=== PATIENT | female | born 2000 | race Two or more races ===

== ENCOUNTER 2019-07-09 09:23 | Inpatient (IN) | payer MEDICAID ==
[2019-07-09] MEDS ORDERED: Celecoxib 200 MG Cap PO ONE (09:45)
[2019-07-09] MEDS ORDERED: Gabapentin 300 MG Cap PO ONE (09:45)
[2019-07-09] MEDS ORDERED: Scopolamine 1.5 MG Transdermal Patch TOP SCH (09:45)
[2019-07-09] MEDS ORDERED: Acetaminophen 500 MG Tab PO ONE (09:45)
[2019-07-09] MEDS ORDERED: Lactated Ringers 1,000 ML ONE (09:50)
[2019-07-09] MEDS ORDERED: fentaNYL 250 MCG/5 ML SDV ONE ×2 (09:50→11:50)
[2019-07-09] MEDS ORDERED: Succinylcholine 200 MG/10 ML MDV ONE (09:52)
[2019-07-09] MEDS ORDERED: Ondansetron 4 MG/2 ML SDV ONE (09:52)
[2019-07-09] MEDS ORDERED: Rocuronium 50 MG/5 ML Vial ONE (09:52)
[2019-07-09] MEDS ORDERED: Neostigmine Methylsulfate 1 MG/ML 5 ML Syringe ONE (09:52)
[2019-07-09] MEDS ORDERED: Glycopyrrolate 0.2 MG/ML 5 ML MDV ONE (09:52)
[2019-07-09] MEDS ORDERED: Propofol 200 MG/20 ML SDV ONE (09:52)
[2019-07-09] MEDS ORDERED: Dexamethasone 4 MG/ML SDV ONE (09:52)
[2019-07-09] MEDS ORDERED: Dextrose 5%-Lactated Ringers 1,000 ML IV SCH (10:00)
[2019-07-09] MEDS ORDERED: Levofloxacin/Dextrose 5%-Water 500 MG in Premix Bag 1 BAG IV ONE (11:15)
[2019-07-09] MEDS ORDERED: Ketamine 50 MG in Sodium Chloride 0.9% 49.5 ML IV SCH (11:30)
[2019-07-09] MEDS ORDERED: Ketamine 500 MG/5 ML MDV IV SCH (11:30)
[2019-07-09] MEDS ORDERED: Magnesium Sulfate 7 GM in Sodium Chloride 0.9% 250 ML IV ONE (11:30)
[2019-07-09] MEDS: Levofloxacin 500 MG/20 ML SDV ONE ×2 (12:22→13:02)
[2019-07-09] MEDS ORDERED: Labetalol 20 MG/4 ML Syringe ONE (12:45)
[2019-07-09] MEDS ORDERED: hydrOXYzine HCL 100 MG/2 ML SDV IM ONE (13:46)
[2019-07-09] MEDS ORDERED: Acetaminophen 500 MG Tab PO PRN (14:43)
[2019-07-09] MEDS ORDERED: Cyclobenzaprine 10 MG Tab PO PRN (14:43)
[2019-07-09] MEDS ORDERED: Calcium Gluconate 10% 1 GM/10 ML SDV IVPUSH PRN (14:43)
[2019-07-09] MEDS ORDERED: oxyCODONE 5 MG Tab PO PRN (14:43)
[2019-07-09] MEDS ORDERED: Ondansetron 4 MG/2 ML SDV IVPUSH PRN (14:43)
[2019-07-09] MEDS ORDERED: Labetalol 20 MG/4 ML Syringe IVPUSH PRN (14:43)
[2019-07-09] MEDS ORDERED: HYDROmorphone 1 MG/ML Syringe IV PRN (14:43)
[2019-07-09] MEDS ORDERED: hydrOXYzine HCL 100 MG/2 ML SDV IM PRN (14:43)
[2019-07-09] MEDS ORDERED: Metoclopramide 10 MG/2 ML SDV IVPUSH PRN (14:43)
[2019-07-09] MEDS ORDERED: diphenhydrAMINE 50 MG/ML SDV IVPUSH PRN (14:43)
[2019-07-09] MEDS: HYDROmorphone 0.5 MG/0.5 ML Syringe IVPUSH PRN (15:06)
[2019-07-09] MEDS ORDERED: Pantoprazole 40 MG Vial IVPUSH SCH (16:00)
[2019-07-09] MEDS ORDERED: MVI, Adult with Vitamin K 10 ML, Thiamine 200 MG, Chromium/Copper/Mang/Selen/Zn 1 ML in... IV SCH ×4 (16:00)
[2019-07-09] MEDS: Acetaminophen 500 MG Tab PO SCH ×2 (16:06→17:03)
[2019-07-09] MEDS: Heparin Sodium 5,000 Units/ML Vial SUBCUT SCH (18:11)
[2019-07-09] MEDS: Gabapentin 250 MG/5 ML Solution ML 470 ML Bottle PO SCH (20:42)
[2019-07-10] MEDS: Acetaminophen 500 MG Tab PO SCH ×4 (00:10→23:30)
[2019-07-10] MEDS: Dextrose 5%-Lactated Ringers 1,000 ML IV SCH ×2 (00:10→05:56)
[2019-07-10] MEDS: HYDROmorphone 0.5 MG/0.5 ML Syringe IVPUSH PRN ×4 (01:06→20:20)
[2019-07-10] MEDS ORDERED: Iopamidol 612 MG/ML 50 ML SDV PO STA (01:21)
[2019-07-10] MEDS: Heparin Sodium 5,000 Units/ML Vial SUBCUT SCH ×2 (05:55→17:47)
[2019-07-10] MEDS ORDERED: Ondansetron 4 MG Tab.DIS PO PRN (07:35)
[2019-07-10] MEDS ORDERED: Amphetamine/Dextroamphetamine Salts 10 MG Tab PO PRN (07:36)
[2019-07-10] MEDS ORDERED: Dextrose 5%-Lactated Ringers 1,000 ML IV SCH (07:45)
[2019-07-10] MEDS: Levothyroxine 100 MCG Tab PO SCH (08:09)
[2019-07-10] MEDS ORDERED: hydrOXYzine HCl 25 MG Tab PO PRN (08:17)
[2019-07-10] MEDS ORDERED: Non-Formulary Medication 1 Each (Amphetamine/Dextroamphetamine [Adderall Xr] 30 MG) PO SCH (09:00)
[2019-07-10] MEDS: Amphetamine/Dextroamphetamine Salts 10 MG Cap.ER PO SCH (09:14)
[2019-07-10] MEDS: Gabapentin 250 MG/5 ML Solution ML 470 ML Bottle PO SCH ×3 (09:18→20:53)
--- NOTE | 2019-07-10 09:31 | PN ---
DATE OF SERVICE: 07/10/2019 SUBJECTIVE: Chantel is postoperative day #1 following a Glenn-en-Y gastric bypass surgery. She has been very sleepy. Oral intake was 100 and urine output 850. Temperature max of 100. Pain has been controlled. REVIEW OF SYSTEMS: Remainder of review of systems negative for any pertinent positives and negatives. OBJECTIVE: GENERAL: Chantel Tejada is a 18-year-old female. She is quite sleepy. TPR at 07:26, 99.1; 65; 16; blood pressure 149/60. HEENT: Negative. NECK: Supple. HEART: Regular rate and rhythm. LUNGS: Clear. ABDOMEN: Dressings dry and intact. FLETCHER drain is intact and draining a light red drainage of 140 mL. EXTREMITIES: SCDs are on and there is no peripheral edema. ASSESSMENT: Laparoscopic Glenn-en-Y gastric bypass surgery, liver biopsy, repair of diaphragmatic hernia, excision of mediastinal lipoma and partial gastrectomy for morbid obesity, hepatomegaly, diaphragmatic hernia, mediastinal lipoma. Date of surgery: 07/09/2019. Surgeon: Chan Hinojosa MD. PLAN: 1. Decrease IV to 100 mL per hour. 2. Dressing off, may shower. 3. Step 2 gastric bypass diet with no cereal. Upper GI was normal. 4. Zofran ODT 4 mg q.4 hours p.r.n. nausea. 5. Home medications restarted; Adderall XR 30 mg daily, Adderall XR 30 mg p.o. bedtime or 2nd dose later in the day, p.r.n. if needed. Synthroid 100 mcg p.o. before breakfast. 6. Good pulmonary toilet. 7. Encourage ambulation. 8. Communication order written for 3 med cups, 1 every 20 minutes and record at bedside. 9. We will evaluate p.r.n. or in a.m. Anel Ventura PA-C /[id number]
[2019-07-10] MEDS: Celecoxib 200 MG Cap PO SCH ×2 (09:47→20:15)
[2019-07-10] MEDS: SCOPOLAMINE PATCH CHECK TOP SCH (09:48)
[2019-07-10] MEDS: Levofloxacin/Dextrose 5%-Water 500 MG in Premix Bag 1 BAG IV SCH (11:09)
[2019-07-10] MEDS ORDERED: Pantoprazole 40 MG Delayed-Release Granules 1 Packet PO SCH (16:00)
[2019-07-10] MEDS ORDERED: MVI, Adult with Vitamin K 10 ML, Thiamine 200 MG, Chromium/Copper/Mang/Selen/Zn 1 ML in... IV SCH ×4 (16:00)
[2019-07-11] MEDS: Heparin Sodium 5,000 Units/ML Vial SUBCUT SCH (06:09)
[2019-07-11] MEDS ORDERED: Levothyroxine 100 MCG Tab PO SCH (07:30)
[2019-07-11] MEDS ORDERED: Magnesium Hydroxide 400 MG/5 ML Susp 30 ML Cup PO PRN (07:33)
[2019-07-11] MEDS: Levothyroxine 100 MCG Tab PO SCH (07:44)
[2019-07-11] MEDS: Acetaminophen 500 MG Tab PO SCH (07:45)
[2019-07-11] MEDS: Celecoxib 200 MG Cap PO SCH (08:33)
[2019-07-11] MEDS: Amphetamine/Dextroamphetamine Salts 10 MG Cap.ER PO SCH (08:33)
[2019-07-11] MEDS: SCOPOLAMINE PATCH CHECK TOP SCH (08:35)
[2019-07-11] MEDS: Gabapentin 250 MG/5 ML Solution ML 470 ML Bottle PO SCH (08:44)
[2019-07-11] MEDS ORDERED: Cyanocobalamin (Vitamin B12) 1,000 MCG/ML SDV IM ONE (09:00)
[2019-07-11] MEDS: Levofloxacin/Dextrose 5%-Water 500 MG in Premix Bag 1 BAG IV SCH (11:00)
--- NOTE | 2019-07-12 09:08 | DISCH ---
ADMISSION DIAGNOSES: Morbid obesity, BMI 51; hypothyroidism; attention deficit hyperactivity disorder; prediabetes; and history of migraine headaches. DISCHARGE DIAGNOSES: Laparoscopic Glenn-en-Y gastric bypass surgery, liver biopsy, repair of diaphragmatic hernia, excision of mediastinal lipoma, and partial gastrectomy. POSTOPERATIVE DIAGNOSES: 1. Morbid obesity, hepatomegaly, diaphragmatic hernia, and mediastinal lipoma. 2. Date of surgery: 07/09/2019. Surgeon: Chan Hinojosa MD. HISTORY: Chantel Tejada is a 18-year-old female with longstanding history of morbid obesity and increasing comorbidities. After preoperative evaluation and discussion of possible risks and possible complications, she wished to proceed with surgical procedure. HOSPITAL COURSE: Chantel had her surgery on 07/09/2019. She had no operative complications. On postoperative day #1, her upper GI was normal. She was started on a step 2 gastric bypass with no cereal, and she was started on her home medications. On postoperative day #2, oral intake was 790, but the patient states she did not record at bedside all of her intake. Output was 1900. Vital signs were stable. Up, ambulating. Pain was well managed. She was able to be discharged to home after she was able to drink at least 450 mL. PHYSICAL EXAMINATION: GENERAL: Chantel Tejada is a 18-year-old female. VITAL SIGNS: Height is 5 feet 8 inches, weight is 335 pounds, BMI is 51. TPR at 0251, 98.4; 78; 18; blood pressure is 133/66. HEENT: Negative. NECK: Supple. HEART: Regular rate and rhythm. LUNGS: Clear. ABDOMEN: Dressings dry and intact. 4 x 4 will be placed over FLETCHER drain site. Trocar sites negative. EXTREMITIES: Without peripheral edema. DISPOSITION: Discharged to home. CONDITION: Stable and improving. PRESCRIPTION MEDICATIONS: Zofran ODT 4 mg every 4 hours p.r.n. nausea, vomiting. Milk of magnesia 30 mL one daily, 2 were sent home with the patient. Celebrex 200 mg b.i.d., which she already has at home; and Adderall 30 mg p.o. daily; Synthroid/levothyroxine 100 mcg before breakfast. FOLLOWUP: Appointment with Anel Ventura PA-C, on 07/21/2019 at 11:00 a.m. at [facility]. DIET: Step 2 gastric bypass diet with no cereal for 2 weeks until 07/24/2019. ACTIVITY: No lifting greater than 10 pounds for 2 weeks. Walk at least 6 times inside your home. Driving: Do not drive for 1 week. Shower/bathing, may shower. Wound incision care; keep site clean and dry. Wear abdominal binder for 2 weeks and then as tolerated. Notify provider if any fever, increased pain, nausea, or vomiting. SPECIAL INSTRUCTIONS: Use incentive spirometer 10 times every hour while awake for 1 week. Keep a record of liquid intake. Drink 1 med cup which is 30 mL every 20 minutes to obtain a goal of 1200 mL daily. Bring record of oral intake to appointment.
--- NOTE | 2019-07-12 09:49 | CR ---
[facility] HISTORY: Postbariatric surgery FINDINGS: Patient swallowed water-soluble contrast. Upright views of the abdomen show no evidence of extravasation or obstruction. IMPRESSION: Status post bariatric surgery No extravasation or obstruction seen
--- NOTE | 2019-07-15 10:45 | OR ---
DATE OF PROCEDURE: 07/09/2019 SURGEON: Chan Hinojosa MD PREOPERATIVE DIAGNOSIS: Morbid obesity. POSTOPERATIVE DIAGNOSES: 1. Morbid obesity. 2. Marked hepatomegaly. 3. Paraesophageal diaphragmatic hernia. 4. Mediastinal lipoma. 5. 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 OPERATIVE PROCEDURES: 1. Laparoscopic Glenn-en-Y gastric bypass with long limb gastroenterostomy (59936). 2. Gavin-Cut needle liver biopsy (87561). 3. Repair of paraesophageal diaphragmatic hernia (08415). 4. Excision of mediastinal lipoma (55899). 5. Partial gastrectomy (73236). ANESTHESIA: General. [employer]: Anel Ventura PA-C INDICATIONS FOR PROCEDURE: This is a 18-year-old presenting with longstanding morbid obesity and increasingly significant comorbidities. After preoperative evaluation and discussion, she wished to proceed with a gastric bypass. Potential risks of the procedure including bleeding, infection, leaks from various GI tract closures, problems with bowel obstruction over time as well as possibility of cardiopulmonary, septic, or hemorrhagic complications leading to were discussed, and the patient wishes to proceed. DETAILS OF PROCEDURE: The patient was taken to the operating room and placed in a supine position. After general endotracheal anesthesia was induced, she was converted to a lithotomy position and the abdomen prepped and draped. At 15 cm inferior and 5 cm left of the xiphoid process, transverse incision was made and the peritoneal cavity entered under direct vision with an Optiview trocar, inflated to 15 mmHg pressure with CO2. Laparoscope was reinserted. No underlying trocar insertion site injuries were seen. Bilateral transversus abdominis plane blocks were then placed, and 5 additional trocars were placed across the upper and mid abdomen. The liver was noted to be markedly enlarged and somewhat fatty infiltrated. Gavin-Cut needle biopsies from the left lobe of the liver were accomplished and hemostasis was established with electrocautery. The transverse colon was then retracted superiorly. The omentum was fairly small in this case and did not need to be divided. The small bowel was identified at the ligament of Treitz and traced 100 cm distal to that point, where it was divided with a LUCINDA stapler. Small bowel was then traced out additional 150 cm where the [id number] enteroenterostomy was accomplished with an internal firing of the Endo-LUCINDA 60 mm stapler. Common opening was then closed transversely with the same stapler and angles anastomosed and mesenteric defect approximated with some 0 Ethibond stitch along with fibrin sealant. The divided end of the Glenn limb was then mobilized upward to the area of the esophagogastric junction and came up there without significant tension. The liver was then retracted anteriorly. The patient was noted to have significant paraesophageal diaphragmatic hernia with prolapse of perigastric fat and some gastric fundus in a plane anterior to the course of the esophagus. After reduction of the hernia, the peritoneum overlying it was incised and reflected downward. An anterior repair of the diaphragmatic hernia was then accomplished with 0 Ethibond sutures reinforced with PTFE pledgets. During the course of the dissection, mediastinal lipoma was encountered which was dissected and excised so as to facilitate more accurate repair of the diaphragmatic hernia. The gastrointestinal catheter which was in the stomach was then inflated 15 mL and pulled up snugly against the EG junction. Gastric wall over the apex balloon was then marked with electrocautery and balloon catheter was deflated and pulled upward. The lesser omental tissue adjacent to the gastric cardia was then incised allowing dissection behind the stomach at that level. Pouch formation was initiated with transverse firing of the LUCINDA stapler at the level of the cauterized dwight in the gastric cardia and then completed with additional firings of LUCINDA stapler up to and through the angle of His. Upon completion of the pouch, both staple lines were noted to be intact. The distal end of the newly formed gastric pouch was distinctly ischemic at this point and segment of that was then resected and sent as a separate specimen with resection being accomplished with additional firings of the LUCINDA stapler. The anvil of a 25 mm EEA stapler was then attached to [place] sump type tube. The latter was brought down through the mouth and taken out through a small opening in the gastric pouch, allowing the anvil likewise to be pulled down to within the gastric pouch. The divided end of the Glenn limb was then opened, and the main body of the EEA stapler passed several centimeters into the lumen of small bowel, brought up the anvil and united with it, thus creating the gastrojejunostomy. Upon removal of stapler, double donuts of mucosa were noted within it. The small bowel was closed off with a vascular staple line. Gastrojejunostomy was reinforced with some 3-0 Vicryl seromuscular stitch, along with fibrin sealant. A leak test was accomplished with injection of 120 mL of air in the gastric pouch while it was submerged with cefoxitin-containing saline solution. No leaks were identified. A single Patrick-Pablo drain was taken through the left lateral trocar site and positioned adjacent to the gastrojejunostomy and from there up into the splenic fossa. Trocars were then removed and the peritoneal cavity deflated. Incisions were closed with 4-0 Vicryl skin stitch and drains were fixed with 4-0 Vicryl stitch as well. The patient was taken to the recovery room in satisfactory condition. There were no evident complications. Physician printer assistant, Anel Ventura, played an essential role in assisting in this case, helping to position the patient, retract structures as needed, as well as suturing and cutting sutures when indicated. Her presence improved patient safety and decreased the operative time. Chan Hinojosa MD /[id number]
== END 2019-07-11 13:46 | disposition home or self-care (01) | DRG 621 ==
LOC: JP.SDSSCHI 09:23 → JP.SDS 09:23 → EDSTATUS 10:15 → JP.MS 13:45
PROVIDERS: ADMIT Surgery; ATTEND Surgery
PROC: 0D164ZA Bypass Stomach to Jejunum, Percutaneous Endoscopic Approach (ICD-10-PCS; principal; 2019-07-09)
PROC: 0FB24ZX Excision of Left Lobe Liver, Percutaneous Endoscopic Approach, Diagnostic (ICD-10-PCS; 2019-07-09)
PROC: 0BQT4ZZ Repair Diaphragm, Percutaneous Endoscopic Approach (ICD-10-PCS; 2019-07-09)
PROC: 0JB63ZZ Excision of Chest Subcutaneous Tissue and Fascia, Percutaneous Approach (ICD-10-PCS; 2019-07-09)
PROC: 0DB64ZZ Excision of Stomach, Percutaneous Endoscopic Approach (ICD-10-PCS; 2019-07-09)
DX: E66.01 Morbid (severe) obesity due to excess calories (principal); E03.9 Hypothyroidism, unspecified; F90.9 Attention-deficit hyperactivity disorder, unspecified type; G43.909 Migraine, unspecified, not intractable, without status migrainosus; K44.9 Diaphragmatic hernia without obstruction or gangrene; D17.79 Benign lipomatous neoplasm of other sites; R73.03 Prediabetes; R16.0 Hepatomegaly, not elsewhere classified; Z90.89 Acquired absence of other organs; Z79.890 Hormone replacement therapy; Z79.899 Other long term (current) drug therapy; Z88.0 Allergy status to penicillin; Z88.1 Allergy status to other antibiotic agents; Z88.8 Allergy status to other drugs, medicaments and biological substances; Z68.43 Body mass index [BMI] 50.0-59.9, adult
CPT/HCPCS: 36415; 74240; 74240-26; 80053; 81025; 83735; 84100; 86850; 86900; 86901; 93005; 94762; A9270-GY; C9113; J0171; J0330; J1100; J1170; J1644; J1956; J2405; J2704; J2710; J2795; J3010; J3410; J3411; J3420; J3475; J3490; J7030; J7050; J7120; J7121; Q9967